=== PATIENT | female | born 2000 | race Two or more races ===

== ENCOUNTER 2020-12-15 14:42 | Emergency (ER) | payer BC ==
[~2020-12-15] VITALS: Ht 149.9 cm; Wt 54.4 kg
[2020-12-15 15:07] VITALS: BP 142/84
[2020-12-15] MEDS ORDERED: Albuterol/Ipratropium 3ml neb HHN ONE (15:30)
--- NOTE | 2020-12-15 15:31 | Emergency Room Report ---
History of Present Illness General Chief Complaint: Flu Like Symptoms Source: Patient Present Illness HPI Patient is a 20-year-old female presents for increased cough and difficulty with breathing. Prior history of nonproductive cough starting today. She had no prior history of lung disease. Denies being a smoker. Denies any recent sick contacts. States that she been having fever today. Denies any leg pain or swelling. No use of contraceptives. Denies any exposure to coronavirus. Associated sore throat. 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 Patient History Past Medical History: see triage record Last Menstrual Period: 1 month Now: No Reviewed Nursing Documentation: PMH: Agreed; PSxH: Agreed Review of Systems All Other Systems: negative except mentioned in HPI Physical Exam Vital Signs Date Time Temp Pulse Resp B/P (MAP) Pulse Ox O2 Delivery O2 Flow Rate FiO2 12/15/20 15:07 100.0 126 20 142/84 (103) 91 Room Air General Appearance: well appearing, no apparent distress, alert, GCS 15 Head: normocephalic, atraumatic ENT: hearing grossly normal, normal voice Neck: full range of motion, supple Respiratory: no respiratory distress, speaking full sentences Cardiovascular #1: normal inspection, no edema Gastrointestinal: normal inspection, soft Musculoskeletal: normal inspection, gait/station normal, no calf tenderness Neurologic: alert, motor strength/tone normal, teacher assistant III-XII nml as tested, oriented x3, normal gait Psychiatric: normal inspection, mood/affect normal Skin: no rash Medical Decision Making Diagnostic Impression: Primary Impression: Viral respiratory infection Additional Impression: Urinary tract infection ER Course Patient presents for cough. Differential diagnosis include was not limited to congestive heart failure, pneumonia, bronchitis among others. Because of complexity of patient's case laboratory tests and imaging studies were ordered. Patient's laboratory testing was unremarkable. She is started on IV fluids. She is given breathing treatment with improvement in her symptoms. Patient was advised to follow-up with primary care physician for recheck. Advised to have outpatient coronavirus testing reperformed. She advised to maintain quarantine. Was advised to return if worse. This medical record is generated with [employer] client service supervisor software. There may be some client service supervisor discrepancies related to use of this software Last Vital Signs Date Time Temp Pulse Resp B/P (MAP) Pulse Ox O2 Delivery O2 Flow Rate FiO2 12/15/20 15:07 100.0 126 20 142/84 (103) 91 Room Air Status: improved Disposition: HOME, SELF-CARE Condition: Stable Scripts Albuterol Sulfate* (Albuterol Sulfate Hfa*) 8.5 Gm Hfa.aer.ad 2 PUFF INH Q4H, #1 INH Prov: Azeem Adkins MD 12/15/20 Cephalexin* (KEFLEX*) 500 Mg Capsule 500 MG ORAL EVERY 6 HOURS, #28 CAP Prov: Azeem Adkins MD 12/15/20 Azeem Adkins MD Dec 15, 2020 15:30
[2020-12-15 15:54] LABS: BASOPHILS % (AUTO) 0.4 % (0.0-2.0); EOSINOPHILS % (AUTO) 2.2 % (0.0-3.0); HEMATOCRIT 52.4 % (37.0-47.0); MEAN CORPUSCULAR VOLUME 82 FL (80-99); NEUTROPHILS % (AUTO) 75.3 % (45.0-75.0); PLATELET COUNT 365 K/UL (150-450); RED BLOOD COUNT 6.42 M/UL (4.20-5.40); RED CELL DISTRIBUTION WIDTH 14.1 % (11.6-14.8); WHITE BLOOD COUNT 17.2 K/UL (4.8-10.8)
[2020-12-15 15:58] LABS: APPEARANCE,URINE SLIGHTLY CLOUDY; BILIRUBIN, URINE NEGATIVE (NEGATIVE); COLOR,URINE PALE YELLOW; GLUCOSE, URINE (UA) NEGATIVE (NEGATIVE); KETONES,URINE NEGATIVE (NEGATIVE); LEUKOCYTE ESTERASE ,URINE 3+ (NEGATIVE); NITRITE,URINE NEGATIVE (NEGATIVE); PH,URINE 6.5 (4.5-8.0); PROTEIN,URINE NEGATIVE (NEGATIVE); UROBILINOGEN,URINE NORMAL MG/DL (0.0-1.0)
[2020-12-15 16:15] LABS: ALANINE AMINOTRANSFERASE 25 U/L (12-78); ALBUMIN 4.4 G/DL (3.4-5.0); ALBUMIN/GLOBULIN RATIO 0.9 (1.0-2.7); ALKALINE PHOSPHATASE 148 U/L (46-116); ANION GAP 12 mmol/L (5-15); ASPARTATE AMINO TRANSFERASE 18 U/L (15-37); BILIRUBIN,TOTAL 0.4 MG/DL (0.2-1.0); BLOOD UREA NITROGEN 11 mg/dL (7-18); CALCIUM 9.7 MG/DL (8.5-10.1); CARBON DIOXIDE 26 MMOL/L (21-32); CHLORIDE 101 MMOL/L (98-107); CREATININE 0.9 MG/DL (0.55-1.30); POTASSIUM 3.9 MMOL/L (3.5-5.1); SODIUM 138 MMOL/L (136-145)
[2020-12-15] MEDS ORDERED: cefTRIAXone 1 GM in NS 55 ML IVPB ONE (16:45)
--- NOTE | 2020-12-15 17:41 | Diagnostic Imaging Report ---
Indication: Shortness of breath Technique: XRAY Chest 1v Comparison: None Findings: Heart size and mediastinal contours are within normal limits for AP technique. There is no focal airspace consolidation, pneumothorax or pleural effusion. Osseous structures demonstrate no acute abnormality. Impression: No radiographic evidence of acute cardiopulmonary disease.
[2020-12-15] MEDS ORDERED: CEPHALEXIN500 MG ORAL (17:59)
[2020-12-15] MEDS ORDERED: ALBUTEROL SULF8.5 G1 INH (17:59)
--- NOTE | 2020-12-15 18:56 | NUR ---
Patient is a 20-year-old female presents for increased cough and difficulty with breathing. Prior history of nonproductive cough starting today. She had no prior history of lung disease. Denies being a smoker. Denies any recent sick contacts. States that she been having fever today. Denies any leg pain or swelling. No use of contraceptives. Denies any exposure to coronavirus. Associated sore throat.
== END 2020-12-15 18:20 | disposition home or self-care (01) ==
LOC: EMR 15:42
DX: J06.9 Acute upper respiratory infection, unspecified (principal); N39.0 Urinary tract infection, site not specified; Z88.6 Allergy status to analgesic agent
CPT/HCPCS: 36415; 71045; 80053; 81003; 83690; 83880; 84484; 85025; 85610; 85730; 86140; 87040; 87086; 94640; 96361; 96365; 99284; J0696; J7030; 83605; J7620